=== PATIENT | female | born 1955 | race Caucasian/White ===

== ENCOUNTER 2016-11-08 08:07 | Day surgery (SDC) | payer OTHER ==
[~2016-11-08] VITALS: Ht 160 cm; Wt 104.3 kg
[~2016-11-08 08:07] MED LIST: IV RINGERS,LACTATED 1000ML 1,000 ML IV SCH; LIDOCAINE 1% 1 ML SYRINGE. ID PRN; ONDANSETRON PF 4 MG/2 ML VIAL. IV PRN; PROCHLORPERAZINE 10 MG/2 ML VIAL. IV PRN; fentaNYL PF VIAL 100 MCG/2 ML VIAL IV PRN
[2016-11-08] MEDS ORDERED: fentaNYL PF VIAL 100 MCG/2 ML VIAL ONE (09:19)
[2016-11-08] MEDS ORDERED: DEXAMETHASONE SOD PHOS 20 MG/5 ML VIAL. ONE (09:19)
[2016-11-08] MEDS ORDERED: ONDANSETRON PF 4 MG/2 ML VIAL. ONE (09:19)
[2016-11-08] MEDS ORDERED: LIDOCAINE 2% PF Vial for OR 5 ML VIAL. ONE (09:19)
[2016-11-08] MEDS ORDERED: PROPOFOL 20 ML IV ONE (09:19)
[2016-11-08] MEDS ORDERED: LIDOCAINE 1% 20 ML VIAL. ONE (09:20)
[2016-11-08] MEDS ORDERED: BUPIVACAINE MPF 0.5% 30 ML VIAL. ONE (09:20)
--- NOTE | 2016-11-08 09:56 | DISCH ---
DISCHARGE INSTRUCTIONS Condition on Discharge Condition on Discharge: Stable Activity After Discharge Activity Instructions for Disc: Other, see below Bathing Instructions: Shower-keep dressing dry Lifting Instructions after Dis: No heavy lifting, No pulling or pushing Weight Bearing Status after Di: As tolerated Diet after Discharge Diet after Discharge: Regular Wound Incision Care Wound/Incision Care: Ice to area for comfort, Keep wound/cast CDI, Keep wound elevated, Change dressing Contacting the DR. after DC Call your doctor for: Concerns you may have Follow-Up Follow up with: Rafi in 2wks HALEIGH KEENE II, MD Nov 08, 2016 09:56
--- NOTE | 2016-11-08 10:29 | PDOC4 ---
Operative Note Operative Note Date of Surgery: 11/08/2016 Surgeon: Evens Keene M.D. Senior Licensing Manager: none Anesthesia: [place] block Anesthesiologist: Amado Pre-operative Diagnosis: Right trigger thumb Post-operative Diagnosis: same Procedure Performed: Open Right trigger thumb release Findings: Complications: none Estimated Blood Loss: 5mL Reason For Procedure: The patient had presented to my outpatient orthopedic surgery clinic with complaints of catching and locking at her right thumb. Clinical and radiographic diagnosis were consistent with the above preoperative diagnosis. After discussion of the risks, benefits, and alternatives to operative versus conservative therapy she elected to proceed with surgery. Description of Procedure: The patient was greeted in the preoperative area where the correct extremity, digit, was marked and identified. She was taken back to the operative suite and antibiotics were started en route. Once in the OR she was transferred gently supine to the OR table and secured to the bed. She had successful induction of anesthesia. All pressure points were padded. We then attached the arm table device to the operating room table. We then proceeded to prep and drape her operative upper extremity in our usual sterile fashion. After this, we conducted a standard preoperative timeout. After this, I palpated for the nodule in the flexor sheath and made a an incision in the transverse skin crease at the base of her thumb. I dissected subcutaneous tissue with a mosquito and identified the A1 susie. I then used a tenotomy scissors to transect this. I pulled distally on her skin and subcutaneous tissue with a Sen retractor to fully visualize the susie and ensure I had accomplished a complete release. There was no catching on passive range of motion. The digital nerve was not encountered during this procedure. The area was irrigated with sterile saline and then I closed skin with a horizontal mattress 3-0 nylon. After this, the hand was cleansed and dried and sterile dressing was applied. She tolerated this well. No complications. Postoperative plan is to discharge her home. I encouraged active finger and wrist range of motion. Other restrictions were discussed with her as well. We will see her back in 2 weeks, sooner should a problem arise. EVENS KEENE II, MD Nov 08, 2016 10:29
[2016-11-08 10:44] VITALS: BP 126/66
[2016-11-08] MEDS ORDERED: HYDR-971 PO (10:45)
[2016-11-08] MEDS ORDERED: HYDROcodone/APAP 5/325MG 1 TAB TABLET PO PRN (10:45)
== END 2016-11-08 12:10 | disposition home or self-care (01) ==
LOC: SURG 08:07
PROVIDERS: ATTEND Orthopaedic Surgery Sports Medicine
DX: M65.311 Trigger thumb, right thumb (principal); I10 Essential (primary) hypertension; J45.909 Unspecified asthma, uncomplicated; E66.9 Obesity, unspecified; Z68.44 Body mass index [BMI] 60.0-69.9, adult; Z87.39 Personal history of other diseases of the musculoskeletal system and connective tissue; Z96.652 Presence of left artificial knee joint; F17.200 Nicotine dependence, unspecified, uncomplicated; Z88.6 Allergy status to analgesic agent
CPT/HCPCS: 26055; J0690; J1100; J2405; J2704; J3010; J3490

== ENCOUNTER 2019-03-15 09:44 | Day surgery (SDC) | payer BC, OTHER ==
[~2019-03-15] VITALS: Ht 162.6 cm; Wt 103.4 kg
[~2019-03-15 09:44] MED LIST changes: +HYDR-3164 PO; -IV RINGERS,LACTATED 1000ML 1,000 ML IV SCH; -LIDOCAINE 1% 1 ML SYRINGE. ID PRN; -ONDANSETRON PF 4 MG/2 ML VIAL. IV PRN; -PROCHLORPERAZINE 10 MG/2 ML VIAL. IV PRN; -fentaNYL PF VIAL 100 MCG/2 ML VIAL IV PRN
[2019-03-15] MEDS ORDERED: BENA40TA3 PO (10:36)
[2019-03-15] MEDS ORDERED: TRIA50CA3 PO (10:36)
[2019-03-15] MEDS ORDERED: FISH1CAP PO (10:37)
[2019-03-15] MEDS ORDERED: CHOL100013 PO (10:37)
[2019-03-15] MEDS ORDERED: MULT-245 PO (10:38)
[2019-03-15] MEDS ORDERED: ASPI-630 PO (10:39)
[2019-03-15] MEDS ORDERED: MELA3TAB56 PO (10:39)
[2019-03-15] MEDS ORDERED: cbd oil SL (10:41)
[2019-03-15] MEDS ORDERED: IV RINGERS,LACTATED 1000ML 1,000 ML IV SCH ×2 (10:45→14:29)
--- NOTE | 2019-03-15 11:32 | DISCH ---
DISCHARGE INSTRUCTIONS Condition on Discharge Condition on Discharge: Stable Activity After Discharge Activity Instructions for Disc: Activity as tolerated, Other, see below Bathing Instructions: Shower-keep dressing dry Lifting Instructions after Dis: No heavy lifting, No pulling or pushing Weight Bearing Status after Di: As tolerated Diet after Discharge Diet after Discharge: Regular Wound Incision Care Wound/Incision Care: Ice to area for comfort, Keep wound/cast CDI, Keep wound elevated, Change dressing, Do not change dressing Other wound/incision instructi: do not change dressing Contacting the DRAnnette after DC Call your doctor for: Concerns you may have Follow-Up Follow up with: HALEIGH Gunderson II, MD Mar 15, 2019 11:32
[2019-03-15] MEDS ORDERED: KETAMINE HCL IN NACL, ISO-OSM 50 MG/5 ML SYRINGE ONE (12:53)
[2019-03-15] MEDS ORDERED: MIDAZOLAM HCL/PF 2 MG/2 ML VIAL. ONE (12:53)
[2019-03-15] MEDS ORDERED: PROPOFOL 50 ML IV ONE (12:53)
[2019-03-15] MEDS ORDERED: LIDOCAINE 2% PF 5 ML VIAL. ONE (12:53)
[2019-03-15] MEDS ORDERED: ceFAZolin 2GM PREMIX 2 GM/50 ML BAG IV ONE (13:00)
[2019-03-15] MEDS ORDERED: BUPIVACAINE MPF 0.5% 30 ML VIAL. ONE (13:25)
[2019-03-15] MEDS ORDERED: LIDOCAINE 1% PF 30 ML VIAL. ONE (13:25)
[2019-03-15] MEDS ORDERED: fentaNYL PF VIAL 100 MCG/2 ML VIAL ONE ×2 (13:43→14:22)
[2019-03-15] MEDS ORDERED: ONDANSETRON PF 4 MG/2 ML VIAL. ONE (13:55)
--- NOTE | 2019-03-15 14:08 | PDOC4 ---
Operative Note Operative Note Date of procedure: 03/15/2019 Surgeon: Evens Keene Preoperative diagnosis: #1 right carpal tunnel syndrome #2 left trigger thumb Postoperative diagnosis: Same Procedure performed: #1 open right carpal tunnel release #2 open left trigger thumb release Anesthesia: Sedation with Pet[place] block on the right side and local on the left. Complications: none Tourniquet Times: 20 minutes on the right, 13 minutes on the left Blood loss: About 5 mL in total Reason for procedure: Patient is a very pleasant female who had a right trigger thumb with myself years ago. She presented with complaints consistent with carpal tunnel syndrome on the right and trigger thumb on the left. EMG and physical exam are consistent with these diagnoses. She had tried conservative therapies and wished to proceed with surgery, and therefore we reviewed the risks, benefits, and alternatives and she wished to proceed. Description of procedure: Patient was greeted in the preoperative area where the, we then prep and drape right upper extremity in her usual sterile fashion and conducted our standard preoperative timeout. After this, I made an incision from her distal wrist crease into her palm through the palmar crease. I dis sected subcutaneous tissue with bipolar cautery and cauterized bleeders, I also used a mosquito. I placed myself retaining retractor and incised palmar fascia in line with the skin incision. Identified the transverse carpal ligament and release this sharply. There was a normal-appearing median nerve. After this, I placed a right now retractor and the distal portion of the incision and spread above and below the transverse carpal ligament, small portion was remaining, and release this with tenotomies. I then repeated this direction and an ulnar directed fashion at the proximal portion of the incision to release the distal antebrachial fascia. I then thoroughly irrigated out the operative field and closed skin with 3-0 nylon in a mattress fashion. The arm and hand were cleansed and dried and a sterile soft bulky dressing was applied over top of an aquacel dressing. We then directed our attention to the left upper extremity which was prepped and draped after we applied a nonsterile tourniquet and taped in place. We then confirmed the procedure and site again. I then injected the area with a 50-50 local anesthetic mixture and allowed this to set up. I then made a transverse incision across the base of her thumb through a skin crease and used a mosquito to identify the A1 susie which I then released with a tenotomy. I delivered the flexor tendon from the operative field to help and try to accomplish a complete release which I was confident I had. I then irrigated this incision out thoroughly and closed skin with simple interrupted 3-0 nylon. After this, the hand was cleansed and dried and a soft bulky thumb spica was applied. She tolerated the surgery as well. No complications. At the conclusion, she was awakened from her sedation and transferred gently supine to the recovery room cart. Postoperative plan is to discharge her home. We had previously discussed restrictions. I will see her back in 2 weeks, sooner should a problem arise. EVENS KEENE II, MD Mar 15, 2019 14:08
[2019-03-15] MEDS ORDERED: fentaNYL PF VIAL 100 MCG/2 ML VIAL IV PRN ×3 (14:30)
[2019-03-15] MEDS ORDERED: LIDOCAINE 1% PF 2 ML VIAL. ID PRN (14:30)
[2019-03-15] MEDS ORDERED: PROCHLORPERAZINE 10 MG/2 ML VIAL. IV PRN (14:30)
[2019-03-15] MEDS ORDERED: ONDANSETRON PF 4 MG/2 ML VIAL. IV PRN (14:30)
[2019-03-15] MEDS ORDERED: fentaNYL PF VIAL 100 MCG/2 ML VIAL IVP PRN (14:30)
[2019-03-15] MEDS: fentaNYL PF VIAL 100 MCG/2 ML VIAL IV PRN ×2 (14:31→14:36)
[2019-03-15] MEDS ORDERED: HYDROcodone/APAP 5/325MG 1 TAB TABLET PO ONE (14:45)
[2019-03-15 15:15] VITALS: BP 185/78
== END 2019-03-15 15:45 | disposition home or self-care (01) ==
LOC: SURG 09:44
PROVIDERS: ATTEND Orthopaedic Surgery Sports Medicine
DX: G56.01 Carpal tunnel syndrome, right upper limb (principal); M65.312 Trigger thumb, left thumb; I10 Essential (primary) hypertension; Z98.890 Other specified postprocedural states; Z96.653 Presence of artificial knee joint, bilateral; Z79.82 Long term (current) use of aspirin; Z88.5 Allergy status to narcotic agent; E66.8 Other obesity; Z68.39 Body mass index [BMI] 39.0-39.9, adult; Z87.891 Personal history of nicotine dependence; Z87.39 Personal history of other diseases of the musculoskeletal system and connective tissue; Z96.652 Presence of left artificial knee joint; Z98.42 Cataract extraction status, left eye; Z90.721 Acquired absence of ovaries, unilateral; Z85.828 Personal history of other malignant neoplasm of skin
CPT/HCPCS: 26055; 64721; A7015; J0696; J2001; J2250; J2405; J2704; J3010; J3490